=== PATIENT | female | born 1955 | race Caucasian/White ===

== ENCOUNTER 2017-05-16 08:54 | Outpatient (CLI) | payer BC | END 2017-05-16 08:55 | disposition home or self-care (01) | LOC: BICMAMMO 08:54 | PROVIDERS: ATTEND Obstetrics & Gynecology | DX: Z12.31 Encounter for screening mammogram for malignant neoplasm of breast (principal); Z80.3 Family history of malignant neoplasm of breast | CPT/HCPCS: 77063; 77067; G0202 ==

== ENCOUNTER 2018-04-17 13:32 | Outpatient (CLI) | payer BC ==
--- NOTE | 2018-04-17 17:57 | CT ---
HEAD CT WITHOUT CONTRAST: History: Hypotension. Headache x two months. Comparison: None. Technique: Noncontrast head CT was performed from the skull base to the skull vertex. FINDINGS: No parenchymal hemorrhage. No extraaxial hematoma. No midline shift. Basilar cisterns patent. Brain v olume is age appropriate. Cortical rogers white matter differentiation is preserved. Ventricles and sulci are patent and symmetric. Calvarium is intact. Adequate aeration of the sinuses and mastoid air cells. IMPRESSION: 1. No acute intracranial process. POS: [facility]
== END 2018-04-17 13:33 | disposition home or self-care (01) ==
LOC: BICCT 13:32
PROVIDERS: ATTEND Internal Medicine
DX: R51 Headache (principal); I10 Essential (primary) hypertension
CPT/HCPCS: 70450

== ENCOUNTER 2018-05-17 15:08 | Outpatient (CLI) | payer BC | END 2018-05-17 15:09 | disposition home or self-care (01) | LOC: BICMAMMO 15:08 | PROVIDERS: ATTEND Obstetrics & Gynecology | DX: Z12.31 Encounter for screening mammogram for malignant neoplasm of breast (principal); Z80.3 Family history of malignant neoplasm of breast | CPT/HCPCS: 77063; 77067 ==

== ENCOUNTER 2018-06-09 23:14 | Emergency (ER) | payer BC | END 2018-06-09 23:28 | disposition left against medical advice (07) | LOC: ERS 23:14 | DX: Z53.21 Procedure and treatment not carried out due to patient leaving prior to being seen by health care provider (principal) ==

== ENCOUNTER 2018-07-21 10:49 | Inpatient (IN) | payer BC ==
[2018-07-21] MEDS ORDERED: Atropine Sulfate 1 mg/10 ml Syringe ONE ×2 (11:07→11:36)
[2018-07-21 11:15] LABS: #Monocytes 0.6 thou/uL (0.11-0.59); #Neutrophils 9.3 thou/uL (1.40-6.50); %Basophils 0.2 % (0.0-1.0); %Eosinophils 0.3 % (0.0-10.0); %Lymphocytes 9.4 % (21.0-51.0); %Monocytes 5.1 % (0.0-10.0); Mean Corpuscular HGB CONC 32.3 g/dL (32.0-36.0); Mean Corpuscular Hemoglobin 32.2 pg (27.0-31.0); Mean Corpuscular Volume 99.7 fL (78.0-98.0); Platelet Count 420 thou/uL (130-400); RBC Distribution Width 11.2 % (11.5-14.5); Red Blood Cell (RBC) Count 4.36 mill/uL (4.20-5.40); White Blood Cell (WBC) Count 10.9 thou/uL (4.8-10.8)
[2018-07-21 11:42] LABS: ALT (SGPT) 19 U/L (8-55); AST (SGOT) 15 U/L (5-34); Acetaminophen Less than 6.0 mcg/mL (10.0-30.0); Albumin 4.2 g/dL (3.5-5.0); Alcohol Less than 10 mg/dL (Less than 10); Alkaline Phosphatase 62 U/L (40-150); Anion Gap 13 mmol/L (10-20); BUN (Urea Nitrogen) 17 mg/dL (9.8-20.1); Bilirubin, Total 0.6 mg/dL (0.2-1.2); CK (CPK) 61 U/L (29-168); Calc. Creatinine Clearance 0 mL/min (70-130); Calcium 9.6 mg/dL (7.8-10.44); Carbon Dioxide 22 mmol/L (22-29); Chloride 104 mmol/L (98-107); Estimated GFR-MDRD 66; Glucose 181 mg/dL (70-105); Potassium 4.3 mmol/L (3.5-5.1); Protein, Total 7.2 g/dL (6.0-8.3); Salicylate Less than 8.0 mg/dL (15.0-30.0); Sodium 135 mmol/L (136-145)
[2018-07-21 11:47] LABS: Medtox Reader # READER 1
[2018-07-21 11:48] LABS: Amphetamine Not Detected (NotDetected); Barbiturates Screen Not Detected (NotDetected); Benzodiazepine Screen Not Detected (NotDetected); Cocaine Metabolite Screen Not Detected (NotDetected); Medtox Control Line Valid? VALID (VALID); Methadone Not Detected (NotDetected); Methamphetamine Not Detected (NotDetected); Opiate Screen Not Detected (NotDetected); Oxycodone Screen Not Detected (NotDetected); Phencyclidine (PCP) Not Detected (NotDetected); THC/Cannabinoid Screen Detected (NotDetected); Tricyclic Screen Not Detected (NotDetected)
[2018-07-21 17:30] VITALS: BMI 26.7
--- NOTE | 2018-07-21 17:51 | CON ---
DATE OF CONSULTATION: 07/21/2018 REASON FOR CONSULTATION: Clonidine overdose, bradycardia. HISTORY OF PRESENT ILLNESS: Ms. Vilchis is a 62-year-old white female, who comes to the hospital, being brought in by EMS after she took many trazodone's and clonidine's due to being anxious. Brother took her to see a psychiatrist and was expecting her to be admitted for psychiatric care. Apparently, she became anxious and took several doses of her clonidine and a whole bottle of trazodone, so EMS was called. She was brought in. Currently, she is bradycardic, minimally verbal, but she is easily arousable. She is not somnolent. She is awake, except she does want to communicate. Her heart rate is in the 40s. If she gets up or she moves around, it goes up to the 60s. She denies suicidal ideations or homicidal ideations per ER report; however, she is not a conversing with me. PAST MEDICAL HISTORY: 1. Hypertension. 2. Anxiety and depression. 3. Bipolar disorder. PAST SURGICAL HISTORY: x2. OUTPATIENT MEDICATIONS: 1. Losartan/hydrochlorothiazide 100/25 a day. 2. Trazodone 50 mg a day. 3. Amlodipine 10 mg a day. 4. Clonidine 0.2 mg 3 times a day. 5. Lexapro 20 mg a day. 6. Progesterone. 7. [place] Thyroid 60 mg daily. ALLERGIES: NO KNOWN DRUG ALLERGIES. SOCIAL HISTORY: No alcohol, tobacco, or drugs. FAMILY HISTORY: Noncontributory. REVIEW OF SYSTEMS: Unobtainable as the patient is not responding to, is not talking to me. She is awake, however, she is not responding to questions. PHYSICAL EXAMINATION: VITAL SIGNS: Temperature 97.2, pulse 38, respiratory rate 20, saturating 99% on room air, blood pressure 128/62. GENERAL: Awake, alert, not answering questions. HEENT: Normocephalic, atraumatic. NECK: Supple. LUNGS: Clear. CARDIOVASCULAR: S1 and S2. No S3, S4, heart rate in the 30s. ABDOMEN: Soft. EXTREMITIES: No edema. SKIN: Warm and dry. LABORATORY FINDINGS: Laboratory work was reviewed. White count of 10, hemoglobin 14, hematocrit 43, platelet count 420. Chemistry is unremarkable. TSH is normal. Toxicology, cannabinoid was detected. ASSESSMENT/PLAN: 1. Clonidine and trazodone overdose. 2. Bipolar disorder. PLAN: 1. Monitor in ICU overnight. 2. Atropine at bedside for worsening bradycardia; however, most likely she is going to start getting faster. She is not symptomatic with heart rhythm in the upper 30s. 3. Have to monitor QT for QT prolongation, does not seem prolonged on monitor. We will get an EKG in the morning to make sure this is not the case. 4. We will follow. Job ID: [id number]
[2018-07-21] MEDS: Sodium Chloride 0.9% 1,000 ML IV SCH (19:00)
--- NOTE | 2018-07-22 02:42 | HP ---
Encounter 07/21/2018 1545 CHIEF COMPLAINT: Overdose. HISTORY OF PRESENT ILLNESS: This patient is a 62-year-old female with a history of bipolar disorder, who presented via the emergency department. The patient has a history of the above-mentioned bipolar disorder and apparently has recently been having some progression. She is following with Dr. Domingo, who had intentions of seeing the patient today for likely admission to psychiatric facility. The patient was resistant to go but her brother who is Dr. Joaquin Jiang, local urologist, picked her up and took her to her appointment. She tended to give him some resistance but ultimately, he was able to get her there after some aggravation. The patient had indicated that she had taken medication beyond what her normal dose would be. However, it was not clear whether this was accurate information given her behavior. When she did finally get to the psychiatrist office and was evaluated, her vital signs were normal. However, she subsequently became more somnolent and repeat monitoring of her blood pressure showed that she started to develop hypotension and bradycardia. Therefore, they felt that something was wrong and brought her to the emergency department. Her medication bottles indicated that she had a dose of clonidine on the and had she been taking this properly, there would be 20 to 21 pills missing from that bottle. Her trazodone bottle was also completely empty. The patient currently reports that she does not know why she took the pills. She reports that she is a bit sleepy, but she specifically denies any other significant complaints. Of note, the patient has apparently recently been in some type of relationship with someone, who is exactly half her age, that was felt to be unhealthy relationship and that was recently discontinued and is felt that this may be causing the patient's additional stressors exacerbating her mental health issues. Her brother also describes recently she has been having some fits of "repetitive behavior and mumbling words." REVIEW OF SYSTEMS: Noted for some generalized fatigue, insomnia, and some dizziness. All other systems were reviewed and were negative except for those things mentioned in the history of present illness, however, the patient is still a little bit somnolent. PAST MEDICAL HISTORY: Notable for hypertension, bipolar disorder with several hypomanic episodes in the past 6 weeks. PAST SURGICAL HISTORY: and some "cosmetic procedures." FAMILY HISTORY: Unknown as the patient is adopted. SOCIAL HISTORY: The patient admits to smoking marijuana. She does drink about 3 times per week. She is single. She lives in [place]. She is full code and her brother is her surrogate decision maker. ALLERGIES: NONE. CURRENT MEDICATIONS: 1. Progesterone 200 mg p.o. daily. 2. Trazodone 50 mg p.r.n. 3. Escitalopram 20 mg one p.o. daily. 4. [place] Thyroid 60 mg p.o. daily. 5. Amlodipine 10 mg daily. 6. Losartan/HCTZ 100/25 one p.o. daily. 7. Clonidine 0.1 mg p.o. daily. PHYSICAL EXAMINATION: VITAL SIGNS: Blood pressure 127/63, pulse 54, respirations 16, and O2 saturation 98% on room air. GENERAL APPEARANCE: Age-appropriate female. She is in no distress. She is somnolent, but little awaken. She does not make much in the way of eye contact and answers most questions, but occasionally chooses not to answer. HEENT: PERRL. No OP lesions. NECK: Supple and symmetric. HEART: Regular rate and rhythm without murmurs, gallops, or rubs. LUNGS: Clear to auscultation bilaterally with good chest wall expansion and air exchange. ABDOMEN: Soft, nontender, and nondistended. Positive bowel sounds. No masses. No organomegaly. EXTREMITIES: Warm and dry. NEUROLOGIC: The patient is moving all extremities spontaneously. Cranial nerves appeared grossly intact. PSYCH: The patient again is a bit somnolent, but does not make good eye contact. She does not appear to be manic and is generally appropriate. LABS: WBC 10.9, Hgb 14.0, Plts 420. Na 135, K+ 4.3, Chl 104, CO2 22, BUN 17, Creat 0.87, Glucose 65. UDS positive for marijuana. IMPRESSION AND PLAN: 1. Overdose of clonidine and trazodone. The patient appears to be acting out in an attempt to avoid going to inpatient psychiatric facility. She has been receiving fluids only and continuous monitoring primarily. The most notable affect at this point is somnolence and bradycardia. 2. Bradycardia. The patient's heart rate dropped into the 30s. She received one dose of atropine in the emergency department and subsequently appears to be staying around 45 beats per minute. She is maintaining a blood pressure. We will put the patient in ICU and consult Cardiology. I have discussed the case with Dr. Pryor. 3. Severe bipolar disorder. The patient is supposed to be going to [facility], phone #[phone]. Her local psychiatrist is Dr. Domingo and his phone #[phone]. Her brother, Dr. Joaquin Jiang, is #[phone]. He would very much like to stay and informed of the patient's situation, and he is her medical power of diet technician registered. 4. History of hypertension, meds held. Job ID: [id number] [facility]
[2018-07-22] MEDS: Sodium Chloride 0.9% 1,000 ML IV SCH ×2 (04:00→13:08)
[2018-07-22 05:26] LABS: Anion Gap 8 mmol/L (10-20); BUN (Urea Nitrogen) 14 mg/dL (9.8-20.1); Calc. Creatinine Clearance 73 mL/min (70-130); Calcium 8.8 mg/dL (7.8-10.44); Carbon Dioxide 26 mmol/L (22-29); Chloride 107 mmol/L (98-107); Estimated GFR-MDRD 65; Glucose 100 mg/dL (70-105); Potassium 4.1 mmol/L (3.5-5.1); Sodium 137 mmol/L (136-145)
--- NOTE | 2018-07-22 08:31 | CON ---
DATE OF CONSULTATION: 07/21/2018 REASON FOR CONSULTATION: CCU management. HISTORY OF PRESENT ILLNESS: A 62-year-old female, who intentionally ingested excessive amounts of clonidine and trazodone yesterday. She presented with bradycardia and somnolence. She is now improved back to baseline and has no acute complaints. PAST MEDICAL HISTORY: 1. Bipolar disorder. 2. Hypertension. PAST SURGICAL HISTORY: . FAMILY MEDICAL HISTORY: Unknown as the patient is adopted. ALLERGIES: NONE. MEDICATIONS: Prior to admission: 1. Progesterone 200 mg daily. 2. Trazodone 50 mg daily. 3. Escitalopram 20 mg daily. 4. [place] Thyroid 60 mg daily. 5. Amlodipine 10 mg daily. 6. Losartan/hydrochlorothiazide 100/25 one daily. 7. Clonidine 0.1 mg daily. SOCIAL HISTORY: Smokes marijuana. Drinks three times per week. Does not use tobacco products. REVIEW OF SYSTEMS: A 12-point review of systems is otherwise negative. PHYSICAL EXAMINATION: VITAL SIGNS: Temperature 98.3, pulse running in the 50s, blood pressure 135/79, O2 saturation 96%. HEENT: Unremarkable. NECK: No JVD. CHEST: Clear without wheezing or rhonchi. CARDIAC: S1, S2. Regular. ABDOMEN: Soft, nontender. EXTREMITIES: No clubbing, cyanosis, or edema. LABORATORY DATA: Sodium 137, potassium 4.1, chloride 107, CO2 of 26, BUN 14, creatinine 0.8, glucose 100. White blood cell count 10.9, hematocrit 43.5, and platelet count 420. Tox screen was positive for cannabinoids. ASSESSMENT: 1. Status post overdose with clonidine and trazodone - symptomatically better. 2. Bipolar disorder. 3. Intentional suicide attempt. PLAN: The patient can likely be transferred to psychiatric facility later this afternoon or early tomorrow. Her current care is appropriate. I have nothing to add. Pulmonary/Critical Care will be available as needed. Job ID: [id number]
[2018-07-22] MEDS ORDERED: hydrALAZINE 20 MG/ML VIAL SLOW IVP PRN (14:55)
[2018-07-22] MEDS ORDERED: Escitalopram Oxalate 20 mg Tablet PO SCH (15:15)
--- NOTE | 2018-07-22 15:27 | PRG ---
DATE OF SERVICE: 07/22/2018 SUBJECTIVE: The patient denies any new complaints at this time. No chest pain, shortness of breath, palpitations, or focal neurologic deficit reported. OBJECTIVE: VITAL SIGNS: The patient is afebrile with blood pressure 131/73, pulse rate between 40 to 50, respirations of 18, O2 saturation of 97% on room air. GENERAL: A 62-year-old female, in no apparent distress. Denies any suicidal ideation at this time. NECK: Supple. No JVD. No carotid bruit. LUNGS: Clear to auscultation bilaterally. HEART: S1, S2 present. Bradycardic. ABDOMEN: Soft. Bowel sounds present. EXTREMITIES: No edema or calf tenderness. CURRENT MEDICATIONS: Reviewed. LABORATORY FINDINGS: WBC 10.9 with platelet count 420, hemoglobin 14. Sodium 137, potassium 4.1 with BUN 14, creatinine 0.89. Urine drug screen was positive for cannabinoids. Telemetry monitoring by my review showed sinus bradycardia. IMPRESSION: 1. Overdose of clonidine and trazodone. 2. Sinus bradycardia secondary to clonidine overdose. 3. Cannabinoid abuse. The patient was counseled. 4. Hyponatremia, improved. 5. Macrocytosis. 6. Bipolar disorder. 7. Hypertension. PLAN: Telemetry monitoring. Resume Lexapro. We will start thiamine, folic acid, multivitamin. We will discontinue IV fluids. We will add low-dose Xanax as needed. Resume thyroid medications. DISPOSITION: Inpatient psych facility. PLAN: Plan was discussed with the patient and the brother in detail. Job ID: [id number]
--- NOTE | 2018-07-22 16:11 | PDOC.CTH ---
Cardiology Progress Note - Subjective Much more awake today. Conversing normally. - Objective Vital Signs Temp Pulse Ox 07/22/18 12:00 97.8 F 07/22/18 08:00 98.1 F 94 L Weight 151 lb 07/21/18 07/22/18 07/23/18 06:59 06:59 06:59 Intake Total 1545 1888 Output Total 1100 475 Balance 445 1413 - Physical Examination General/Neuro: alert & oriented x3, NAD Neck: no JVD present Lungs: CTA, unlabored respirations Heart: RRR Abdomen: NT/ND Extremities: other: (no edema.) - Telemetry Telemetry Rhythm: S Will HR in the 50's. - Labs Result Diagrams: 07/21/18 11:06 07/22/18 04:12 - Assessment/Plan 1. Clonidine and Trazodone OD. 2. Bipolar disorder 3. Suicidal attempt. PLAN: - QT stable. - HR improved in the 50's while sleep[ing and up to the 60's when awake. - May transfer to telelmetry. - Likely stable for Psych admission after 24 more hours of observation. - Will need transfer from the hospital to a psych jacobo
[2018-07-22] MEDS: ALPRAZolam 0.25 MG TAB PO PRN (16:13)
[2018-07-22] MEDS: PROGESTERONE MICRONIZED 100 MG PO SCH (19:57)
[2018-07-22] MEDS ORDERED: traZODone HCl 50 MG TAB PO SCH (21:00)
[2018-07-23] MEDS: ALPRAZolam 0.25 MG TAB PO PRN ×3 (01:15→16:13)
[2018-07-23 06:02] LABS: Anion Gap 13 mmol/L (10-20); BUN (Urea Nitrogen) 14 mg/dL (9.8-20.1); Calc. Creatinine Clearance 84 mL/min (70-130); Calcium 8.5 mg/dL (7.8-10.44); Carbon Dioxide 19 mmol/L (22-29); Chloride 107 mmol/L (98-107); Estimated GFR-MDRD 76; Glucose 95 mg/dL (70-105); Magnesium 1.7 mg/dL (1.6-2.6); Potassium 3.6 mmol/L (3.5-5.1); Sodium 135 mmol/L (136-145)
[2018-07-23] MEDS ORDERED: Thyroid 60 MG TAB PO SCH (09:00)
[2018-07-23] MEDS: Escitalopram Oxalate 20 mg Tablet PO SCH (09:03)
[2018-07-23] MEDS: Folic Acid 1 MG TAB PO SCH (09:03)
[2018-07-23] MEDS: Multivit, Therapeutic 1 TAB PO SCH (09:03)
[2018-07-23] MEDS: Cyanocobalamin (Vitamin B-12) 1,000 MCG TAB PO SCH (09:44)
--- NOTE | 2018-07-23 12:24 | PDOC.CTH ---
Cardiology Progress Note - Subjective Doing much better. More awake today. Better overall. - Objective Vital Signs Temp 07/23/18 08:00 98.5 F 07/23/18 03:00 98.4 F Weight 151 lb 07/22/18 07/23/18 07/24/18 06:59 06:59 06:59 Intake Total 1545 2608 380 Output Total 1100 2000 500 Balance 445 608 -120 - Physical Examination General/Neuro: alert & oriented x3, NAD Neck: no JVD present Lungs: CTA, unlabored respirations Heart: RRR Abdomen: NT/ND Extremities: other: (no edema.) - Telemetry Telemetry Rhythm: NSR - Labs Result Diagrams: 07/21/18 11:06 07/23/18 04:30 - Assessment/Plan 1. Clonidine and Trazodone OD. 2. Bipolar disorder 3. Suicide attempt. PLAN: - QTc at 427 this morning. HR in the 70's and BP back to normal. - Stable from cardiac standpoint and may be transferred to psychiatric facility at any time. - Consult [facility].
[2018-07-23] MEDS ORDERED: Losartan/Hydrochlorothiazide 100 mg/25 mg Tablet PO SCH (14:00)
[2018-07-23] MEDS: Acetaminophen 325 MG TAB PO PRN (20:36)
[2018-07-23] MEDS: PROGESTERONE MICRONIZED 100 MG PO SCH (20:39)
--- NOTE | 2018-07-23 22:02 | PDOC.PN ---
- Subjective Encounter Start Date: 07/23/18 Encounter Start Time: 14:30 Patient seen and examined for SI. No new complaints. No overnight events - Objective Resuscitation Status - Order Detail: 07/21/18 14:46 Resuscitation Status Routine Resuscitation Status: FULL: Full Resuscitation Discussed with: Patient and JESSE, her brother MD OWEN Thomas Reviewed: Yes Vital Signs & Weight: Vital Signs (12 hours) Temp 07/23/18 20:00 98 F 07/23/18 16:00 97.8 F 07/23/18 12:00 98.8 F Weight Weight 151 lb Most Recent Monitor Data Heart Rate from ECG 82 NIBP 162/96 NIBP BP-Mean 118 Respiration from ECG 19 SpO2 95 I&O: 07/22/18 07/23/18 07/24/18 06:59 06:59 06:59 Intake Total 1545 2608 1170 Output Total 1100 2000 2400 Balance 445 608 1230 Result Diagrams: 07/21/18 11:06 07/23/18 04:30 EKG Reviewed by me: Yes (Tele SR) Phys Exam - Physical Examination Constitutional: NAD Respiratory: no wheezing, no rhonchi Cardiovascular: RRR, no rub Gastrointestinal: soft, non-tender, positive bowel sounds Musculoskeletal: no edema Dx/Plan - Plan DVT proph w/SCDs IMPRESSION: 1. Overdose of clonidine and trazodone. 2. Sinus bradycardia secondary to clonidine overdose. improving 3. Cannabinoid abuse. The patient was counseled. 4. Hyponatremia, improved. 5. Macrocytosis. 6. Bipolar disorder. 7. Hypertension. PLAN: Cont supportive care [facility] eval Resume Losartan/HCTZ Cont other meds as below Review of Systems - Review of Systems Respiratory: negative: Cough, Dry, Shortness of Breath, Hemoptysis, SOB with Excertion, Pleuritic Pain, Sputum, Wheezing Cardiovascular: negative: chest pain, palpitations, orthopnea, paroxysmal nocturnal dyspnea, edema, light headedness, other Gastrointestinal: negative: Nausea, Vomiting, Abdominal Pain, Diarrhea, Constipation, Melena, Hematochezia, Other - Medications/Allergies Allergies/Adverse Reactions: Allergies Allergy/AdvReac Type Severity Reaction Status Date / Time No Allergy Information Allergy Verified 07/21/18 17:03 Available Medications: Current Medications Acetaminophen (Tylenol) 650 mg PO Q4H PRN PRN Reason: Headache/Fever/Mild Pain (1-3) Last Admin: 07/23/18 20:36 Dose: 650 mg Alprazolam (Xanax) 0.25 mg PO BIDPRN PRN PRN Reason: Anxiety Last Admin: 07/23/18 16:13 Dose: 0.25 mg Cyanocobalamin (Vitamin B-12) 1,000 mcg PO DAILY [facility] Last Admin: 07/23/18 09:44 Dose: 1,000 mcg Escitalopram Oxalate (Lexapro) 20 mg PO DAILY [facility] Last Admin: 07/23/18 09:03 Dose: 20 mg Folic Acid (Folvite) 1 mg PO DAILY [facility] Last Admin: 07/23/18 09:03 Dose: 1 mg HCTZ/Losartan Potassium (Hyzaar 100/25) 1 tab PO DAILY [facility] Hydralazine HCl (Apresoline) 10 mg SLOW IVP Q4H PRN PRN Reason: SBP Greater Than 180 Multivitamins (Theragran) 1 tab PO DAILY [facility] Last Admin: 07/23/18 09:03 Dose: 1 tab Non-Formulary Item Progesterone, Micronized [ Progesterone] 100 Mg 200 mg PO HS [facility] Last Admin: 07/23/18 20:39 Dose: 200 mg Thyroid ([place] Thyroid) 60 mg PO 0600 [facility]
[2018-07-23] MEDS: hydrALAZINE 20 MG/ML VIAL SLOW IVP PRN (23:05)
[2018-07-23 23:07] VITALS: BP 191/103
[2018-07-24] MEDS ORDERED: ALPRAZolam 0.25 MG TAB PO SCH (00:45)
[2018-07-24] MEDS: Acetaminophen 325 MG TAB PO PRN ×2 (04:16→08:34)
[2018-07-24] MEDS: hydrALAZINE 20 MG/ML VIAL SLOW IVP PRN (05:58)
[2018-07-24] MEDS ORDERED: Thyroid 60 MG TAB PO SCH (06:00)
[2018-07-24] MEDS: ALPRAZolam 0.25 MG TAB PO PRN ×2 (07:26→09:40)
[2018-07-24] MEDS: Escitalopram Oxalate 20 mg Tablet PO SCH (08:11)
[2018-07-24] MEDS: Cyanocobalamin (Vitamin B-12) 1,000 MCG TAB PO SCH (08:13)
[2018-07-24] MEDS: Multivit, Therapeutic 1 TAB PO SCH (08:13)
[2018-07-24] MEDS: Folic Acid 1 MG TAB PO SCH (08:13)
[2018-07-24 08:34] VITALS: TEMP 99
[2018-07-24] MEDS ORDERED: Carvedilol 3.125 MG TAB PO SCH ×2 (08:45→17:00)
[2018-07-24] MEDS ORDERED: Losartan/Hydrochlorothiazide 100 mg/25 mg Tablet PO SCH (09:00)
[2018-07-24] MEDS ORDERED: Amlodipine 10 MG TAB PO SCH (09:00)
[2018-07-25] MEDS ORDERED: Amlodipine 10 MG TAB PO SCH (09:00)
--- NOTE | 2018-07-25 09:48 | DIS ---
DATE OF ADMISSION: 07/21/2018 DATE OF DISCHARGE: 07/24/2018 DISCHARGE DISPOSITION: Home. The patient agreed to voluntarily get admitted to inpatient psychiatric facility. DISCHARGE MEDICATIONS: 1. Amlodipine 10 mg daily. 2. Losartan/hydrochlorothiazide 100/12.5 daily. 3. Folic acid, multivitamin, and vitamin B12 daily. 4. [place] Thyroid 60 mg daily. 5. Hydralazine 25 mg 4 times daily as needed for systolic blood pressure over 180. 6. Progesterone 200 mg at bedtime. The patient was seen on the day of discharge. Denies any new complaints. No chest pain, shortness of breath, palpitations reported. INPATIENT REPULPING SUPERVISOR: 1. Cardiology, Dr. Pryor. 2. Critical Care, Dr. Vides. BRIEF HOSPITAL COURSE: The patient is a 62-year-old female with hypertension and bipolar disorder, who was brought in to the emergency room with overdose. The patient overdosed on clonidine and trazodone. Her heart rate was in 30s. She was monitored in the intensive care unit. Her heart rate has significantly improved. Clonidine and trazodone have been discontinued. She has been cleared by consultants for discharge. She agreed voluntarily to get admitted to inpatient psychiatric facility. I discussed the case with primary psychiatrist, Dr. Sedrick Medina as well as accepting physician at [facility], Dr. Salinas. They both agreed with this plan. FINAL DIAGNOSES: 1. Drug overdose with clonidine and trazodone. 2. Sinus bradycardia secondary to clonidine. 3. Cannabinoid abuse. 4. Hyponatremia. 5. Bipolar disorder. 6. Hypertension. 7. Macrocytosis. SIGNIFICANT LABS: TSH 1.4. Creatinine 0.87. WBC 10.9. Urine drug screen positive for cannabinoid. Job ID: [id number]
--- NOTE | 2018-07-27 08:32 | EKG ---
Test Reason : Blood Pressure : / mmHG Vent. Rate : 047 BPM Atrial Rate : 047 BPM P-R Int : 172 ms QRS Dur : 098 ms QT Int : 534 ms P-R-T Axes : 046 037 055 degrees QTc Int : 472 ms Sinus bradycardia Otherwise normal ECG Confirmed by RAUL MEYER ([id number]) on 07/27/2018 8:32:29 AM Referred By: ABI Confirmed By:RAUL MEYER
== END 2018-07-24 09:43 | DRG 918 ==
LOC: ERS 10:49 → ERHOLD 11:57 → EEVIPCON 11:57 → CCU 15:08 → IMCU/EMU 15:40 → CCU 19:32
PROVIDERS: ADMIT Internal Medicine; ATTEND Internal Medicine
DX: T46.5X2A Poisoning by other antihypertensive drugs, intentional self-harm, initial encounter (principal); F31.0 Bipolar disorder, current episode hypomanic; E87.1 Hypo-osmolality and hyponatremia; T43.212A Poisoning by selective serotonin and norepinephrine reuptake inhibitors, intentional self-harm, initial encounter; R00.1 Bradycardia, unspecified; F41.8 Other specified anxiety disorders; I10 Essential (primary) hypertension; D75.89 Other specified diseases of blood and blood-forming organs; Z79.899 Other long term (current) drug therapy; Y92.9 Unspecified place or not applicable
CPT/HCPCS: 36415; 80048; 80053; 80306; 80307; 82550; 83735; 84443; 85025; 93005; 93010; A4353; J0360; J0461

== ENCOUNTER 2018-10-02 14:56 | Outpatient (CLI) | payer BC ==
--- NOTE | 2018-10-02 16:38 | BD ---
EXAM: DEXA bone density examination HISTORY: Osteoporosis screening, menopause COMPARISON: None FINDINGS: L1--bone mineral density 1.091 g/sq cm; T score 0.9. Z score 2.2 L2--bone mineral density 1.175 g/sq cm; T score 1.3; Z score 2.8 L3--bone mineral density 1.306 g/sq cm; T score 2.0; Z score 3.5 L4--bone mineral density 1.356 g/sq cm; T score 2.7, Z score 4.3 Total L1-L4--bone mineral density 1.241 g/sq cm; T score 1.8, Z score 3.2 Left femoral neck--bone mineral density0.896; T score 0.4, Z score 1.7 Total proximal left femur--bone mineral density 1.146; T score 1.7, Z score 2.7 IMPRESSION: Based on the WHO criteria, the patient's bone mineral density is considerednormal. The pa tient is at low risk for fracture.
== END 2018-10-02 14:57 | disposition home or self-care (01) ==
LOC: BICMAMMO 14:56
PROVIDERS: ATTEND Internal Medicine
DX: Z13.820 Encounter for screening for osteoporosis (principal); Z78.0 Asymptomatic menopausal state
CPT/HCPCS: 77080

== ENCOUNTER 2024-05-02 12:54 | Outpatient (CLI) | payer MEDICARE, BC | END 2024-05-02 12:55 | disposition home or self-care (01) | LOC: BICMAMMO 12:54 | PROVIDERS: ATTEND Internal Medicine | DX: Z78.0 Asymptomatic menopausal state (principal) | CPT/HCPCS: 77080 ==